=== PATIENT | female | born 1980 | race African-American/Black ===

== ENCOUNTER 2018-05-09 12:07 | Outpatient (CLI) | payer OTHER ==
[2018-05-09] MEDS: 0.22 MICRON FILTER (METHACHOLINE/OCREVUS) XX (12:45)
[2018-05-09] MEDS: ACETAMINOPHEN TAB 650MG DOSE (2X325MG) PO (12:54)
[2018-05-09] MEDS: diphenhydrAMINE 25 MG CAP PO (12:54)
[2018-05-09] MEDS: methylPREDNISolone INJ 125 MG/2 ML VIAL (J2930) IV (12:54)
[2018-05-09] MEDS: OCRELIZUMAB 600 MG in NS 500 ML IV (12:55)
== END 2018-05-09 17:10 | disposition home or self-care (01) ==
LOC: M INFU 12:07
DX: G35 Multiple sclerosis (principal); Z79.899 Other long term (current) drug therapy
CPT/HCPCS: J2930

== ENCOUNTER → 2018-06-05 | Outpatient (CLI) | payer OTHER ==
[~2018-06-05] MED LIST: PROHANCE 279.3MG/ML 15ML VIAL (A9576) As Ordered; PROHANCE 279.3MG/ML 5ML VIAL (A9576) As Ordered
== END ==
LOC: M RAD 16:33
DX: G37.9 Demyelinating disease of central nervous system, unspecified (principal)
CPT/HCPCS: A9576

== ENCOUNTER 2018-08-01 06:09 | Day surgery (SDC) | payer OTHER ==
[~2018-08-01] VITALS: Ht 162.6 cm; Wt 106.1 kg
[~2018-08-01 06:09] MED LIST changes: +ACETAMINOPHEN 650 MG SUPP PR ONE; +ADDE10CA3 PO; +BUTA1CAP4 PO; +DETR1TAB3 PO; +DETR4CAP PO; +LR 1,000 ML IV ONE; +OCRE300I IV; -PROHANCE 279.3MG/ML 15ML VIAL (A9576) As Ordered; -PROHANCE 279.3MG/ML 5ML VIAL (A9576) As Ordered; +VITA2000 PO; +ZANA4CAP PO
[2018-08-01] MEDS ORDERED: ACIP1TAB PO (06:33)
[2018-08-01 06:41] LABS: HEMATOCRIT 35.6 % (36.0-47.0); HEMOGLOBIN 11.4 g/dl (12.0-15.5); MEAN CORPUSCULAR HEMOGLOBIN 28.8 pg (27.0-33.0); MEAN CORPUSCULAR VOLUME 89.9 fl (80.0-96.0); PLATELET COUNT, AUTOMATED 314 10^3/uL (150-450); RED BLOOD COUNT 3.96 10^6/uL (4.00-5.40); WHITE BLOOD COUNT 4.9 10^3/uL (4.0-10.0)
[2018-08-01 07:05] LABS: BLOOD UREA NITROGEN 13 MG/DL (7-18); CREATININE FOR GFR 0.63 MG/DL (0.55-1.30); GLUCOSE, FASTING 90 MG/DL (70-100)
[2018-08-01 07:06] LABS: CALCIUM LEVEL 8.5 MG/DL (8.5-10.1); CARBON DIOXIDE LEVEL 23 MEQ/L (21-32); CHLORIDE LEVEL 109 MEQ/L (98-107); GLOMERULAR FILTRATION RATE > 60.0 (>60); HCG, SERUM QUANTITATIVE < 1.0 MIU/ML; POTASSIUM SERUM 4.4 MEQ/L (3.5-5.1); SODIUM LEVEL 140 MEQ/L (136-145)
[2018-08-01] MEDS ORDERED: ACETAMINOPHEN 650 MG SUPP As Ordered ONE (07:20)
[2018-08-01] MEDS ORDERED: MIDAZOLAM INJ 2 MG/2 ML VIAL (J2250) As Ordered ONE (07:42)
[2018-08-01] MEDS ORDERED: LIDOCAINE 2% INJ 100 MG/5 ML SDV (FOR ANES.) As Ordered ONE (07:42)
[2018-08-01] MEDS ORDERED: PROPOFOL 200 MG/20 ML VIAL As Ordered ONE (07:42)
[2018-08-01] MEDS ORDERED: dexameTHASONE 4 MG/ML 1ML VIAL (J1100) As Ordered ONE (07:42)
[2018-08-01] MEDS ORDERED: fentaNYL 100 MCG/2 ML INJECTION (J3010) As Ordered ONE (07:42)
[2018-08-01] MEDS ORDERED: METOCLOPRAMIDE INJ 10MG/2ML VIAL (J2765) As Ordered ONE (07:42)
[2018-08-01] MEDS ORDERED: ONDANSETRON 4MG/2ML VIAL (J2405) As Ordered ONE (07:42)
[2018-08-01] MEDS ORDERED: KETOROLAC 60 MG/2 ML VIAL (J1885) As Ordered ONE (07:55)
[2018-08-01] MEDS ORDERED: KETOROLAC 30 MG/ML VIAL (J1885) IV PRN (08:30)
[2018-08-01] MEDS ORDERED: METOCLOPRAMIDE INJ 10MG/2ML VIAL (J2765) IV PRN (08:30)
[2018-08-01] MEDS ORDERED: fentaNYL 100 MCG/2 ML INJECTION (J3010) IV PRN (08:30)
[2018-08-01] MEDS: PERCOCET 5MG/325MG TAB PO PRN ×2 (08:30→09:05)
[2018-08-01] MEDS ORDERED: MEPERIDINE INJ 25 MG/ML VIAL (J2175) IV PRN (08:30)
[2018-08-01] MEDS ORDERED: LR 1,000 ML IV SCH (08:30)
[2018-08-01] MEDS ORDERED: ONDANSETRON 4MG/2ML VIAL (J2405) IV PRN (08:30)
[2018-08-01 09:46] VITALS: BP 140/76
--- NOTE | 2018-08-17 10:38 | RO ---
DATE OF PROCEDURE: 08/01/2018 PREOPERATIVE DIAGNOSIS: Abnormal uterine bleeding, adenomyosis. POSTOPERATIVE DIAGNOSIS: Abnormal uterine bleeding, adenomyosis, rectocele grade 1. PROCEDURE: SURGEON: Dr. Gabe Gomez BILLET ASSEMBLER: ANESTHESIA: General. ESTIMATED BLOOD LOSS: Less than 30 mL. DESCRIPTION OF PROCEDURE: After adequate timeout, prepped and draped in the lithotomy position, sequentials on board, acetaminophen suppository 1300 mg per rectum. Timeout was performed. Bladder was drained for 150 mL of clear urine. On examination, this lady has a grade 1 rectocele, but is not symptomatic of the same. With a single-tooth tenaculum on the anterior lip of the cervix, the uterus sounded to a depth of 9 cm. The os was quite patulous and open. Curettage of the cavity. The fragments were sent off under separate cover for pathology evaluation. The NovaSure endometrial ablation instrument was placed in the cavity with a cavity length of 6.5 and a width of 4.0 and a power setting of 143. We used 65 seconds for the endometrial NovaSure ablation. The instrument was removed. The cystoscope was introduced. 200 mL of fluid in and 200 mL of fluid out. We noticed a very large cavity with a good burn throughout, especially to the os on the right and the left side, anterior and posterior frazier. With that done, the instruments were removed. Instrument and pad count were correct. The patient was sent to recovery in good condition.
== END 2018-08-01 09:56 | disposition home or self-care (01) ==
LOC: M SDC 06:09
PROVIDERS: ATTEND Obstetrics & Gynecology
DX: N93.9 Abnormal uterine and vaginal bleeding, unspecified (principal); N80.0 Endometriosis of uterus; N81.6 Rectocele; G35 Multiple sclerosis; K21.9 Gastro-esophageal reflux disease without esophagitis; R51 Headache; Z88.0 Allergy status to penicillin; Z79.899 Other long term (current) drug therapy
CPT/HCPCS: 36415; 58563; 80048; 84702; 85027; 88305; J1100; J1885; J2250; J2405; J2765; J3010

== ENCOUNTER 2018-08-05 18:05 | Emergency (ER) | payer OTHER ==
[~2018-08-05] VITALS: Ht 162.6 cm; Wt 86.4 kg
[~2018-08-05 18:05] MED LIST changes: -ACETAMINOPHEN 650 MG SUPP PR ONE; +ACIP1TAB PO; -LR 1,000 ML IV ONE
[2018-08-05] MEDS ORDERED: BACL10TA8 PO (18:21)
[2018-08-05 19:44] LABS: BASO % 0.1 % (0.0-1.0); HEMATOCRIT 33.8 % (36.0-47.0); HEMOGLOBIN 11.3 g/dl (12.0-15.5); LYMPH # 0.4 10^3/uL (1.5-4.5); MEAN CORPUSCULAR HEMOGLOBIN 29.3 pg (27.0-33.0); MEAN CORPUSCULAR HGB CONC 33.4 g/dl (32.0-36.5); MEAN CORPUSCULAR VOLUME 87.6 fl (80.0-96.0); MONO # 1.7 10^3/uL (0.0-0.8); NEUTROPHILS # 18.6 10^3/uL (1.8-7.7); NEUTROPHILS % 89.3 % (36.0-66.0); PLATELET COUNT, AUTOMATED 253 10^3/uL (150-450); RED BLOOD COUNT 3.86 10^6/uL (4.00-5.40); WHITE BLOOD COUNT 20.9 10^3/uL (4.0-10.0)
[2018-08-05 19:57] LABS: BLOOD UREA NITROGEN 7 MG/DL (7-18); C REACTIVE PROTEIN QUANTITATIV 1.97 MG/DL (0.00-0.30); CALCIUM LEVEL 8.3 MG/DL (8.5-10.1); CARBON DIOXIDE LEVEL 20 MEQ/L (21-32); CHLORIDE LEVEL 109 MEQ/L (98-107); CREATININE FOR GFR 0.65 MG/DL (0.55-1.30); GLOMERULAR FILTRATION RATE > 60.0 (>60); GLUCOSE, FASTING 98 MG/DL (70-100); POTASSIUM SERUM 3.9 MEQ/L (3.5-5.1); SODIUM LEVEL 137 MEQ/L (136-145)
[2018-08-05 20:04] LABS: ERYTHROCYTE SEDIMENTATION RATE 43 mm/hr (0-20)
[2018-08-05] MEDS ORDERED: methylPREDNISolone INJ 125 MG/2 ML VIAL (J2930) IV ONE (20:30)
[2018-08-05] MEDS ORDERED: METOCLOPRAMIDE INJ 10MG/2ML VIAL (J2765) IV ONE (20:30)
[2018-08-05] MEDS ORDERED: diphenhydrAMINE INJ 50MG/ML VIAL (J1200) IV ONE (20:30)
[2018-08-05] MEDS ORDERED: NS 1,000 ML IV ONE (20:45)
[2018-08-05] MEDS ORDERED: ISOVUE-370 76% 100ML VIAL (Q9967) As Ordered ONE (20:47)
--- NOTE | 2018-08-05 22:02 | REPVR ---
EXAM: CT Abdomen and Pelvis With Contrast EXAM DATE/TIME: 08/05/2018 9:05 PM CLINICAL HISTORY: 37 years old, female; Pain; Abdominal pain; Generalized; Prior surgery; Surgery date: 3-7 days post-operative; Surgery type: Ablation; Additional info: Lower abd pain, recent uterine ablation TECHNIQUE: Axial computed tomography images of the abdomen and pelvis with intravenous contrast. All CT scans at this facility use at least one of these dose optimization techniques: automated exposure control; mA and/or kV adjustment per patient size (includes targeted exams where dose is matched to clinical indication); or iterative reconstruction. Coronal and sagittal reformatted images were created and reviewed. CONTRAST: 100 ml of ISOVUE 370 administered intravenously. COMPARISON: No relevant prior studies available. FINDINGS: Lower thorax: Small gastric hiatus hernia. ABDOMEN: Liver: Unremarkable. No mass. Gallbladder and bile ducts: Status post cholecystectomy. Pancreas: Unremarkable. No ductal dilation. Spleen: Unremarkable. No splenomegaly. Adrenals: Normal. No mass. Kidneys and ureters: Unremarkable. No stones. No hydronephrosis. Stomach and bowel: Unremarkable. No obstruction. No mucosal thickening. Appendix: No evidence of appendicitis. PELVIS: Bladder: Unremarkable as visualized. Reproductive: Irregular cyst measuring 2.4 cm with rim enhancement within the left adnexa consistent with an involuting follicle. Unremarkable right adnexa. Low-density endometrial thickening measuring 15 mm, nonspecific. ABDOMEN and PELVIS: Intraperitoneal space: Small free intraperitoneal fluid within the posterior cul-de-sac. No free intraperitoneal air. Bones/joints: No acute fracture. Soft tissues: Tiny umbilical hernia containing fat. Tiny supraumbilical hernia measuring 4 mm containing fat. Vasculature: Unremarkable. No abdominal aortic aneurysm. Lymph nodes: Unremarkable. No enlarged lymph nodes. IMPRESSION: 1. Involuting left ovarian follicle measuring 2.4 cm. 2. Small free intraperitoneal fluid within the posterior cul-de-sac. 3. Low-density endometrial thickening measuring 15 mm, nonspecific. Electronically signed by: Xavier Catalan On 08/05/2018 22:01:51 PM
[2018-08-05] MEDS ORDERED: PRED20TA PO (22:42)
[2018-08-05] MEDS ORDERED: KETO10TAB PO (22:42)
[2018-08-05] MEDS ORDERED: REGL10TA6 PO (22:42)
[2018-08-05 22:51] VITALS: BP 114/58
== END 2018-08-05 22:52 | disposition home or self-care (01) ==
LOC: M ED 18:05
DX: G89.18 Other acute postprocedural pain (principal); R10.30 Lower abdominal pain, unspecified; G35 Multiple sclerosis; R51 Headache; K21.9 Gastro-esophageal reflux disease without esophagitis; Z87.442 Personal history of urinary calculi; Z88.8 Allergy status to other drugs, medicaments and biological substances; Z79.899 Other long term (current) drug therapy; Z79.2 Long term (current) use of antibiotics
CPT/HCPCS: 36415; 74177; 80048; 81001; 83605; 85025; 85652; 86140; 87040; 96361; 96374; 96375; 99284; J1200; J2765; J2930; Q9967

== ENCOUNTER → 2018-08-30 | Outpatient (CLI) | payer OTHER ==
[~2018-08-30] MED LIST changes: +BACL10TA8 PO; +KETO10TAB PO; +PRED20TA PO; +REGL10TA6 PO
--- NOTE | 2018-09-19 19:08 | REPMRS ---
Patient History The patient states she has not had a clinical breast exam in over a year. Family history of breast cancer at age 30 in maternal aunt. 2D ONLY. Right breast biopsy in 2006 with negative results. Digital Mammo Screening Bilat: August 30, 2018 - Exam #: [id number] Bilateral CC and MLO view(s) were taken. Technologist: Jackeline Gar, Technologist FINDINGS: There are scattered fibroglandular densities. There has been no change in the appearance of the mammogram from the prior studies. There is a moderateamount of residual fibroglandular tissue which is fairly symmetric. There is no interval development of dominant mass, architectural distortion, or clustered microcalcification suggestive of malignancy. Scattered lymph nodes are seen in the axillae. There is a benign appearing intramammary node in the upper outer quadrant of the left breast. No significant changes when compared with prior studies. Assessment: BI-RADS/ACR category 2 mammogram. Benign Findings. Recommendation Routine screening mammogram in 1 year (for women over age 40). This mammogram was interpreted with the aid of an FDA-approved computer-aided dectection system. A. Negative x-ray reports should not delay biopsy if a dominant or clinically suspicious mass is present. B. Four to eight percent of cancers are not identified by mammography. C. Adenosis and dense breast may obscure an underlying neoplasm. Electronically Signed By: Stephon Talbert MD 09/19/18 [id number]
== END ==
LOC: M RAD 10:54
PROVIDERS: ATTEND Obstetrics & Gynecology
DX: Z12.31 Encounter for screening mammogram for malignant neoplasm of breast (principal); Z80.3 Family history of malignant neoplasm of breast

== ENCOUNTER → 2018-09-27 | Outpatient (REF) | payer OTHER | LOC: M SFHCLERA 20:18 | PROVIDERS: ATTEND Nurse Practitioner Family | DX: R68.89 Other general symptoms and signs (principal) ==

== ENCOUNTER 2018-10-14 20:16 | Emergency (ER) | payer OTHER ==
[~2018-10-14] VITALS: Ht 162.6 cm; Wt 69.1 kg
[2018-10-14] MEDS ORDERED: NEXI1CAP4 PO (20:26)
[2018-10-14] MEDS ORDERED: methylPREDNISolone 1,000 MG, VIAL MATE ADAPTER 1 EACH in D5W 250 ML IV ONE (21:15)
[2018-10-14 21:28] LABS: BASO % 0.5 % (0.0-1.0); EOS % 0.5 % (0.0-3.0); HEMATOCRIT 35.4 % (36.0-47.0); HEMOGLOBIN 11.6 g/dl (12.0-15.5); LYMPH # 2.1 10^3/uL (1.5-4.5); LYMPH % 32.2 % (24.0-44.0); MEAN CORPUSCULAR HEMOGLOBIN 28.9 pg (27.0-33.0); MEAN CORPUSCULAR HGB CONC 32.8 g/dl (32.0-36.5); MEAN CORPUSCULAR VOLUME 88.1 fl (80.0-96.0); MONO # 0.8 10^3/uL (0.0-0.8); MONO % 12.9 % (0.0-5.0); NEUTROPHILS # 3.5 10^3/uL (1.8-7.7); NEUTROPHILS % 53.7 % (36.0-66.0); PLATELET COUNT, AUTOMATED 327 10^3/uL (150-450); RED BLOOD COUNT 4.02 10^6/uL (4.00-5.40); WHITE BLOOD COUNT 6.5 10^3/uL (4.0-10.0)
[2018-10-14 21:47] LABS: BLOOD UREA NITROGEN 15 MG/DL (7-18); CALCIUM LEVEL 8.8 MG/DL (8.5-10.1); CARBON DIOXIDE LEVEL 26 MEQ/L (21-32); CHLORIDE LEVEL 106 MEQ/L (98-107); CREATININE FOR GFR 0.71 MG/DL (0.55-1.30); GLOMERULAR FILTRATION RATE > 60.0 (>60); GLUCOSE, FASTING 87 MG/DL (70-100); POTASSIUM SERUM 4.2 MEQ/L (3.5-5.1); SODIUM LEVEL 138 MEQ/L (136-145)
[2018-10-14 21:50] LABS: ERYTHROCYTE SEDIMENTATION RATE 45 mm/hr (0-20)
[2018-10-14] MEDS ORDERED: KETO0.5S2 OD (22:26)
[2018-10-14] MEDS ORDERED: KETOROLAC 0.5% OPHTH SOLN OD ONE (22:30)
[2018-10-14 22:52] VITALS: BP 128/80
== END 2018-10-14 22:51 | disposition home or self-care (01) ==
LOC: M ED 20:16
DX: H46.8 Other optic neuritis (principal); G35 Multiple sclerosis; R51 Headache; K21.9 Gastro-esophageal reflux disease without esophagitis; Z88.8 Allergy status to other drugs, medicaments and biological substances; Z79.899 Other long term (current) drug therapy
CPT/HCPCS: 36415; 80048; 85025; 85652; 86140; 96374; 99284; J2930

== ENCOUNTER 2018-10-15 20:01 | Emergency (ER) | payer OTHER ==
[~2018-10-15] VITALS: Ht 162.6 cm; Wt 86.4 kg
[~2018-10-15 20:01] MED LIST changes: +KETO0.5S2 OD; +NEXI1CAP4 PO
[2018-10-15] MEDS ORDERED: methylPREDNISolone 1,000 MG, VIAL MATE ADAPTER 1 EACH in D5W 250 ML IV ONE (20:30)
[2018-10-15 22:58] VITALS: BP 145/85
== END 2018-10-15 23:05 | disposition home or self-care (01) ==
LOC: M ED 20:01
DX: H46.8 Other optic neuritis (principal); G35 Multiple sclerosis; K21.9 Gastro-esophageal reflux disease without esophagitis; Z79.899 Other long term (current) drug therapy; Z88.8 Allergy status to other drugs, medicaments and biological substances
CPT/HCPCS: 96365; 96366; 99284; J2930

== ENCOUNTER 2018-10-16 16:01 | Outpatient (CLI) | payer OTHER ==
[~2018-10-16] VITALS: Ht 162.6 cm; Wt 86.4 kg
[2018-10-16] MEDS ORDERED: methylPREDNISolone 1,000 MG, VIAL MATE ADAPTER 1 EACH in D5W 250 ML IV ONE (16:15)
[2018-10-16 16:22] VITALS: BP 122/69
[2018-10-16 17:35] VITALS: BP 120/76
== END 2018-10-16 17:35 | disposition home or self-care (01) ==
LOC: M INFU 16:01
PROVIDERS: ATTEND Psychiatry & Neurology Neurology
DX: G35 Multiple sclerosis (principal)
CPT/HCPCS: 96365; J2930

== ENCOUNTER 2018-10-23 09:18 | Outpatient (CLI) | payer OTHER ==
[2018-10-23] VITALS (8 sets, daily range): BP systolic 116–142; BP diastolic 62–81
[~2018-10-23] VITALS: Ht 162.6 cm; Wt 86.0 kg
[~2018-10-23 09:18] MED LIST changes: +ACETAMINOPHEN TAB 650MG DOSE (2X325MG) PO ONE
[2018-10-23] MEDS ORDERED: EMLA CREAM 5GM (LIDOCAINE/PRILOCAINE) TOP ONE (10:00)
[2018-10-23] MEDS ORDERED: OCRELIZUMAB 600 MG in NS 500 ML IV ONE (10:00)
[2018-10-23] MEDS ORDERED: 0.22 MICRON FILTER (METHACHOLINE/OCREVUS) XX ONE (10:00)
[2018-10-23] MEDS ORDERED: methylPREDNISolone INJ 125 MG/2 ML VIAL (J2930) IV ONE (10:00)
[2018-10-23] MEDS ORDERED: diphenhydrAMINE 25 MG CAP PO ONE (10:00)
== END 2018-10-23 14:30 | disposition home or self-care (01) ==
LOC: M INFU 09:18
PROVIDERS: ATTEND Internal Medicine Nephrology
DX: G35 Multiple sclerosis (principal)
CPT/HCPCS: 96375; 96413; 96415; J2350; J2930

== ENCOUNTER 2018-11-24 15:39 | Outpatient (CLI) | payer OTHER ==
[~2018-11-24] VITALS: Ht 162.6 cm; Wt 86.0 kg
[~2018-11-24 15:39] MED LIST changes: -ACETAMINOPHEN TAB 650MG DOSE (2X325MG) PO ONE; +methylPREDNISolone 1,000 MG, VIAL MATE ADAPTER 1 EACH in D5W 250 ML IV ONE
[2018-11-24 15:40] VITALS: BP 138/71
[2018-11-24 17:10] VITALS: BP 135/76
== END 2018-11-24 17:10 | disposition home or self-care (01) ==
LOC: M INFU 15:39
PROVIDERS: ATTEND Obstetrics & Gynecology Hospice and Palliative Medicine
DX: G35 Multiple sclerosis (principal); Z79.899 Other long term (current) drug therapy
CPT/HCPCS: 96365; J2930

== ENCOUNTER 2018-11-25 09:05 | Outpatient (CLI) | payer OTHER ==
[~2018-11-25 09:05] MED LIST changes: -methylPREDNISolone 1,000 MG, VIAL MATE ADAPTER 1 EACH in D5W 250 ML IV ONE
[2018-11-25 10:00] VITALS: BP 148/88
[2018-11-25] MEDS ORDERED: methylPREDNISolone 1,000 MG, VIAL MATE ADAPTER 1 EACH in D5W 250 ML IV ONE (10:00)
[2018-11-25 11:40] VITALS: BP 175/86
== END 2018-11-25 11:40 | disposition home or self-care (01) ==
LOC: M OPCLIPED 09:05 → M MS5PR 09:15 → M OPCLIPED 11:40
PROVIDERS: ATTEND Obstetrics & Gynecology Hospice and Palliative Medicine
DX: G35 Multiple sclerosis (principal)
CPT/HCPCS: 96374; J2930

== ENCOUNTER 2018-11-26 09:29 | Outpatient (CLI) | payer OTHER ==
[~2018-11-26] VITALS: Ht 162.6 cm; Wt 107.4 kg
[2018-11-26 09:35] VITALS: BP 139/93
[2018-11-26] MEDS ORDERED: methylPREDNISolone 1,000 MG, VIAL MATE ADAPTER 1 EACH in D5W 250 ML IV ONE (10:00)
[2018-11-26 11:20] VITALS: BP 161/95
== END 2018-11-26 11:20 | disposition home or self-care (01) ==
LOC: M OPCLIPED 09:29 → M PED 09:35 → M OPCLIPED 11:20
PROVIDERS: ATTEND Obstetrics & Gynecology Hospice and Palliative Medicine
DX: G35 Multiple sclerosis (principal)
CPT/HCPCS: 96365; J2930

== ENCOUNTER 2018-11-27 15:39 | Outpatient (CLI) | payer OTHER ==
[~2018-11-27] VITALS: Ht 160 cm; Wt 86.0 kg
[~2018-11-27 15:39] MED LIST changes: +methylPREDNISolone 1,000 MG, VIAL MATE ADAPTER 1 EACH in D5W 250 ML IV ONE
[2018-11-27 15:40] VITALS: BP 135/79
[2018-11-27 17:00] VITALS: BP 125/72
== END 2018-11-27 17:10 | disposition home or self-care (01) ==
LOC: M INFU 15:39
PROVIDERS: ATTEND Obstetrics & Gynecology Hospice and Palliative Medicine
DX: G35 Multiple sclerosis (principal); Z88.8 Allergy status to other drugs, medicaments and biological substances
CPT/HCPCS: 96365; J2930

== ENCOUNTER 2018-11-28 15:27 | Outpatient (CLI) | payer OTHER ==
[~2018-11-28] VITALS: Ht 162.6 cm; Wt 86.0 kg
[~2018-11-28 15:27] MED LIST changes: -methylPREDNISolone 1,000 MG, VIAL MATE ADAPTER 1 EACH in D5W 250 ML IV ONE
[2018-11-28 15:53] VITALS: BP 117/78
[2018-11-28] MEDS ORDERED: methylPREDNISolone 1,000 MG, VIAL MATE ADAPTER 1 EACH in D5W 250 ML IV ONE (16:00)
[2018-11-28 16:50] VITALS: BP 139/87
== END 2018-11-28 16:50 | disposition home or self-care (01) ==
LOC: M INFU 15:27
PROVIDERS: ATTEND Obstetrics & Gynecology Hospice and Palliative Medicine
DX: H46.9 Unspecified optic neuritis (principal)
CPT/HCPCS: 96365; J2930

== ENCOUNTER 2018-12-03 00:17 | Emergency (ER) | payer OTHER ==
[~2018-12-03] VITALS: Ht 162.6 cm; Wt 86.4 kg
[2018-12-03] MEDS ORDERED: GI COCKTAIL 50ML BTL(HYOSCYAMINE/MAALOX/LIDOCAINE VISCOUS)(1:3:1) PO ONE (01:00)
[2018-12-03 01:45] LABS: BASO % 0.1 % (0.0-1.0); EOS # 0.1 10^3/uL (0.0-0.50); EOS % 1.2 % (0.0-3.0); HEMATOCRIT 33.9 % (36.0-47.0); HEMOGLOBIN 11.2 g/dl (12.0-15.5); LYMPH # 1.9 10^3/uL (1.5-4.5); LYMPH % 23.2 % (24.0-44.0); MEAN CORPUSCULAR HEMOGLOBIN 28.9 pg (27.0-33.0); MEAN CORPUSCULAR VOLUME 87.6 fl (80.0-96.0); MONO # 0.8 10^3/uL (0.0-0.8); MONO % 9.7 % (0.0-5.0); NEUTROPHILS # 5.2 10^3/uL (1.8-7.7); NEUTROPHILS % 65.2 % (36.0-66.0); PLATELET COUNT, AUTOMATED 279 10^3/uL (150-450); RED BLOOD COUNT 3.87 10^6/uL (4.00-5.40); WHITE BLOOD COUNT 8.1 10^3/uL (4.0-10.0)
[2018-12-03] MEDS ORDERED: ISOVUE-370 76% 100ML VIAL (Q9967) As Ordered ONE (01:53)
[2018-12-03] MEDS ORDERED: SUCRALFATE 1 GM TAB PO ONE (02:00)
[2018-12-03] MEDS ORDERED: PANTOPRAZOLE 40MG INJ (PROTONIX) (C9113) IV ONE (02:00)
[2018-12-03 02:07] LABS: ALBUMIN 3.2 GM/DL (3.2-5.2); ALT/SGPT 26 U/L (12-78); BILIRUBIN,DIRECT < 0.1 MG/DL (0.0-0.2); BILIRUBIN,TOTAL 0.2 MG/DL (0.2-1.0); LIPASE 161 U/L (73-393); TOTAL PROTEIN 6.4 GM/DL (6.4-8.2)
[2018-12-03 02:33] VITALS: BP 153/79
--- NOTE | 2018-12-03 03:08 | REPVR ---
EXAM: CT Abdomen and Pelvis With Contrast EXAM DATE/TIME: 12/03/2018 2:01 AM CLINICAL HISTORY: 37 years old, female; Abdominal pain; Epigastric; Additional info: Epigastric pain TECHNIQUE: Imaging protocol: Axial computed tomography images of the abdomen and pelvis with intravenous contrast. Coronal and sagittal reformatted images were created and reviewed. Radiation optimization: All CT scans at this facility use at least one of these dose optimization techniques: automated exposure control; mA and/or kV adjustment per patient size (includes targeted exams where dose is matched to clinical indication); or iterative reconstruction. Contrast material: ISOVUE 370; Contrast volume: 100 ml; Contrast route: IV; COMPARISON: CT ABD/PEL W/IV CONTRAST ONLY 08/05/2018 8:49 PM FINDINGS: Mediastinum: Small hiatal hernia. ABDOMEN: Liver: Normal. No mass. Gallbladder and bile ducts: Status post cholecystectomy. Pancreas: Normal. No ductal dilation. Spleen: Normal. No splenomegaly. Adrenals: Normal. No mass. Kidneys and ureters: Normal. No hydronephrosis. Stomach and bowel: Moderate fecal loading of the colon. Appendix: Normal appendix. PELVIS: Bladder: Unremarkable as visualized. Reproductive: Prominence of the endometrial canal likely related to menstrual cycle. Multiple prominent follicles in bilateral ovaries. Dominant follicle in the left ovary measuring up to 15 mm. ABDOMEN and PELVIS: Intraperitoneal space: Trace free fluid in the pelvis. Bones/joints: No acute fracture. No dislocation. Soft tissues: Small fat-containing umbilical hernia. Vasculature: Normal. No abdominal aortic aneurysm. Lymph nodes: Normal. No enlarged lymph nodes. IMPRESSION: 1. No acute intracranial abnormality. 2. Prominence of the endometrial canal likely related to menstrual cycle. 3. Multiple prominent follicles in bilateral ovaries with dominant follicle on the left. 4. Small fat containing umbilical hernia. Electronically signed by: Ana Millard On 12/03/2018 03:07:53 AM
[2018-12-03] MEDS ORDERED: PROT1TAB2 PO ×2 (03:58→03:59)
[2018-12-03] MEDS ORDERED: CARA1TAB6 PO ×2 (03:58→03:59)
[2018-12-03] MEDS ORDERED: PEPC1TAB5 PO ×2 (03:58→03:59)
[2018-12-03] MEDS ORDERED: FAMOTIDINE 20 MG TAB PO ONE (04:00)
== END 2018-12-03 04:35 | disposition home or self-care (01) ==
LOC: M ED 00:17
DX: R10.13 Epigastric pain (principal); K44.9 Diaphragmatic hernia without obstruction or gangrene; Z88.8 Allergy status to other drugs, medicaments and biological substances; Z79.82 Long term (current) use of aspirin; Z79.899 Other long term (current) drug therapy
CPT/HCPCS: 74177; 80047; 80076; 81001; 83690; 84702; 85025; 93041; 96374; 99284; C9113; Q9967